=== PATIENT | male | born 1975 | race Asian ===

== ENCOUNTER 2017-05-29 08:43 | Inpatient (IN) | payer BC ==
[~2017-05-29] VITALS: Ht 170.2 cm; Wt 75.9 kg
[2017-05-29 09:26] LABS: ADD MIUA? YES; BILIRUBIN NEGATIVE; BLOOD NEGATIVE; COLOR AMBER ((YELLOW)); GLUCOSE (STRIP) NEGATIVE; KETONES 5; LEUKOCYTES NEGATIVE; NITRITE NEGATIVE; PROTEIN (STRIP) 100; SPECIFIC GRAVITY 1.035 (1.000-1.030)
[2017-05-29 09:31] LABS: HEMATOCRIT 41.8 % (38.0-50.0); MCH 30.5 PG (29.0-34.0); MCHC 34.4 G/DL (30.0-36.0); MCV 88.6 FL (86-99); MEAN PLAT.VOLUME 12.8 uM^3 (9.0-12.4); PLATELET COUNT 64 K/uL (156-360); RBC DIS.WIDTH-CV 11.8 % (11.8-14.6); RBC DIS.WIDTH-SD 38.1 % (39-53); RED BLOOD COUNT 4.72 M/uL (4.00-5.50)
[2017-05-29 09:41] LABS: CHLORIDE 101 mEq/L (99-109); POTASSIUM 4.2 mEq/L (3.7-5.4); SODIUM 135 mEq/L (136-147)
[2017-05-29 09:43] LABS: GLUCOSE 119 mg/dL (70-99)
[2017-05-29 09:44] LABS: ANION GAP 8 MEQ/L (2-14)
[2017-05-29 09:46] LABS: BACTERIA NONE SEEN /HPF; EPITHELIAL CELLS RARE /HPF; HYALINE CASTS 0-5 /LPF; MUCUS TRACE /LPF; UCUL ADDED? YES
[2017-05-29 09:47] LABS: GFR ESTIMATE (CALCULATED) > 59 mL/min/
[2017-05-29 09:48] LABS: UREA NITROGEN (BUN) 14 mg/dL (9-23)
[2017-05-29 11:47] LABS: INTER. NORMALIZED RATIO 1.2; PROTHROMBIN TIME 13.2 SEC (10.2-12.9)
[2017-05-29 11:50] LABS: PTT 37.5 SEC (25-37)
[2017-05-29 13:43] LABS: TOTAL BILIRUBIN 1.7 mg/dL (0.0-1.0)
[2017-05-29 13:44] LABS: ALKALINE PHOSPHATASE 59 IU/L (3-129)
[2017-05-29 13:47] LABS: DIRECT BILIRUBIN 0.8 mg/dL (0.0-0.3)
[2017-05-29 20:40] VITALS: BP 106/65
[2017-05-30 01:23] VITALS: BP 103/53
[2017-05-30 04:47] VITALS: BP 102/58
[2017-05-30 06:49] LABS: ANION GAP 7 MEQ/L (2-14); CHLORIDE 105 MEQ/L (99-109); GFR ESTIMATE (CALCULATED) > 59 mL/min/; GLUCOSE 160 mg/dL (70-99); POTASSIUM 4.2 MEQ/L (3.7-5.4); SAMPLE HEMOLYSIS CHECK 0; SAMPLE ICTERIC CHECK 0; SAMPLE LIPEMIA CHECK 0; SODIUM 137 MEQ/L (136-147); UREA NITROGEN (BUN) 8 mg/dL (9-23)
[2017-05-30 06:59] LABS: HEMATOCRIT 38.4 % (38.0-50.0); MCH 29.9 PG (29.0-34.0); MCHC 33.3 G/DL (30.0-36.0); MCV 89.7 FL (86-99); MEAN PLAT.VOLUME 12.3 uM^3 (9.0-12.4); PLATELET COUNT 75 K/uL (156-360); RED BLOOD COUNT 4.28 M/uL (4.00-5.50); WHITE BLOOD COUNT 8.7 K/uL (4.1-10.2)
[2017-05-30 09:41] VITALS: BP 94/56
[2017-05-30 11:28] VITALS: BP 110/73
[2017-05-30 15:52] VITALS: BP 111/69
[2017-05-30 20:20] VITALS: BP 114/73
[2017-05-31 00:16] VITALS: BP 125/72
[2017-05-31 05:35] VITALS: BP 102/58
[2017-05-31 06:14] LABS: HEMATOCRIT 37.2 % (38.0-50.0); MCH 30.1 PG (29.0-34.0); MCHC 33.9 G/DL (30.0-36.0); MCV 88.8 FL (86-99); MEAN PLAT.VOLUME 11.4 uM^3 (9.0-12.4); PLATELET COUNT 97 K/uL (156-360); RBC DIS.WIDTH-CV 11.8 % (11.8-14.6); RBC DIS.WIDTH-SD 37.3 % (39-53); RED BLOOD COUNT 4.19 M/uL (4.00-5.50); WHITE BLOOD COUNT 10.2 K/uL (4.1-10.2)
[2017-05-31 06:38] LABS: ANION GAP 8 MEQ/L (2-14); CHLORIDE 104 MEQ/L (99-109); GFR ESTIMATE (CALCULATED) > 59 mL/min/; POTASSIUM 3.9 MEQ/L (3.7-5.4); SAMPLE HEMOLYSIS CHECK 0; SAMPLE ICTERIC CHECK 0; SAMPLE LIPEMIA CHECK 0; SODIUM 138 MEQ/L (136-147); UREA NITROGEN (BUN) 10 mg/dL (9-23)
[2017-05-31 06:41] LABS: GLUCOSE 113 mg/dL (70-99)
[2017-05-31 07:39] VITALS: BP 104/62
[2017-05-31 15:43] VITALS: BP 111/64
[2017-05-31] MEDS ORDERED: BACTRIM,SEPT1 TABLET PO (16:07)
[2017-05-31] MEDS ORDERED: OXYCODONE HCL5 MG PO (16:07)
[2017-05-31 20:05] VITALS: BP 120/65
[2017-06-01 00:02] VITALS: BP 120/75
[2017-06-01 06:06] LABS: HEMATOCRIT 36.7 % (38.0-50.0); MCH 29.5 PG (29.0-34.0); MCHC 33.5 G/DL (30.0-36.0); MEAN PLAT.VOLUME 11.1 uM^3 (9.0-12.4); PLATELET COUNT 114 K/uL (156-360); RBC DIS.WIDTH-CV 11.7 % (11.8-14.6); RBC DIS.WIDTH-SD 37.5 % (39-53); RED BLOOD COUNT 4.17 M/uL (4.00-5.50); WHITE BLOOD COUNT 7.4 K/uL (4.1-10.2)
[2017-06-01 06:27] LABS: ANION GAP 5 MEQ/L (2-14); CHLORIDE 108 MEQ/L (99-109); GFR ESTIMATE (CALCULATED) > 59 mL/min/; GLUCOSE 88 mg/dL (70-99); POTASSIUM 3.8 MEQ/L (3.7-5.4); SAMPLE HEMOLYSIS CHECK 0; SAMPLE ICTERIC CHECK 0; SAMPLE LIPEMIA CHECK 0; SODIUM 141 MEQ/L (136-147); UREA NITROGEN (BUN) 10 mg/dL (9-23)
[2017-06-01 07:24] VITALS: BP 114/74
[2017-06-01] MEDS ORDERED: FLAGYL500 MG PO ×2 (09:28→09:32)
== END 2017-06-01 10:03 | disposition home or self-care (01) | DRG 331 ==
LOC: EME 08:43 → SDC 13:56 → EME 13:56 → 5EAST 17:05 → 2SOUTH 17:05 → ENRESERV 17:07 → 5EAST 19:34
PROVIDERS: Physician Assistant; Surgery
DX: K35.3 Acute appendicitis with localized peritonitis (principal); D69.6 Thrombocytopenia, unspecified; B96.20 Unspecified Escherichia coli [E. coli] as the cause of diseases classified elsewhere; Z16.12 Extended spectrum beta lactamase (ESBL) resistance; Z87.442 Personal history of urinary calculi; Z87.891 Personal history of nicotine dependence
CPT/HCPCS: 74177; 80048; 80076; 81003; 85027; 85610; 85730; 86850; 86900; 86901; 87070; 87075; 87076; 87077; 87086; 87185; 87186; 87205; 88304; 88305; 93005; 94799; 99281; 99285; J0330; J1100; J1170; J1335; J1650; J1885; J2250; J2405; J2543; J2710; J3010; J7030; J7050; J7120